=== PATIENT | male | born 2000 | race African-American/Black ===

== ENCOUNTER 2022-01-10 00:26 | Emergency (ER) | payer MEDICAID ==
[~2022-01-10] VITALS: Ht 172.7 cm; Wt 77.0 kg
[2022-01-10] MEDS ORDERED: TETANUS, DIPHTHERIA, PERTUSSIS VAC/PF 0.5ML (>10YR OLD) IM ONE (02:00)
[2022-01-10 05:42] LABS: BASOPHILS % 0.7 % (0.0-2.0); EOSINOPHILS % 2.7 % (0.0-5.0); HEMATOCRIT. 35.5 % (42.0-52.0); HEMOGLOBIN. 11.7 g/dL (14.0-18.0); LYMPHOCYTES % 27.9 % (20.0-50.0); MEAN CORPUSCULAR HEMOGLOBIN 26.5 pg (28.0-32.0); MEAN CORPUSCULAR VOLUME 80.5 fL (80.0-94.0); MEAN PLATELET VOLUME 7.7 fl (7.4-10.4); MONOCYTES % 8.2 % (2.0-8.0); NEUTROPHILS % 60.5 % (40.0-76.0); PLATELET 419 x1000/uL (130-400); RED BLOOD CELL COUNT 4.41 mill/uL (4.7-6.1); RED CELL DISTRIBUTION WIDTH 13.9 % (11.6-14.6)
[2022-01-10 05:52] LABS: CHLORIDE 105 mEq/L (98-107)
[2022-01-10] MEDS ORDERED: IOHEXOL-300 100 ML BOTTLE ONE (08:36)
[2022-01-10 16:17] VITALS: BP 138/52
== END 2022-01-10 17:08 | disposition short-term general hospital (02) ==
LOC: ER 00:26 → CANBEDREQ 16:33 → ER 17:08
DX: S41.012A Laceration without foreign body of left shoulder, initial encounter (principal); S14.3XXA Injury of brachial plexus, initial encounter; R53.1 Weakness; D64.9 Anemia, unspecified; X99.1XXA Assault by knife, initial encounter; Y93.89 Activity, other specified; Y92.89 Other specified places as the place of occurrence of the external cause
CPT/HCPCS: 36415; 71045; 71260; 80053; 85025; 90471; 90715; 99285; Q9967